=== PATIENT | male | born 1935 | race Caucasian/White ===

== ENCOUNTER → 2018-02-04 | Outpatient (CLI) | payer MEDICARE, OTHER ==
[~2018-02-04] MED LIST: CEPH500 PO; HYDACE5325 PO; HYDR1TAB94 PO; LEVOXYL; LEVSOD150 PO; METO5A; OMEP20ER PO; Synthroid/Lev0.15 MG PO; THYR60 PO; Zithromax250 MG PO; [UNRECOGNIZED DRUG - REMARK]
== END | disposition home or self-care (01) ==
LOC: LAB SHORT 11:54 → PLD 11:54
DX: D48.5 Neoplasm of uncertain behavior of skin (principal)
CPT/HCPCS: 88305

== ENCOUNTER 2018-05-14 03:34 | Emergency (ER) | payer MEDICARE, OTHER ==
[~2018-05-14] VITALS: Ht 182.9 cm; Wt 64.0 kg
[~2018-05-14 03:34] MED LIST changes: +ASPI81CH; +Prilosec Otc20 MG; +Procrit2000 UNIT/; +SUCR1; +VICODIN ES 7.51 EACH
[2018-05-14 04:00] LABS: BASOPHILS ABSOLUTE AUTO 0.03 K/mm3 (0.00-0.23); BASOPHILS PERCENT AUTO 0 % (0-2); EOSINOPHILS ABSOLUTE AUTO 0.03 K/mm3 (0.00-0.68); EOSINOPHILS PERCENT AUTO 0 % (0-6); Hemoglobin 9.8 g/dL (13.5-17.5); IMMATURE GRAN ABSOLUTE AUTO 0.09 K/mm3 (0.00-0.10); IMMATURE GRAN PERCENT AUTO 1 % (0-1); LYMPHOCYTES ABSOLUTE AUTO 0.46 K/mm3 (0.84-5.20); LYMPHOCYTES PERCENT AUTO 3 % (21-46); MONOCYTES ABSOLUTE AUTO 0.83 K/mm3 (0.16-1.47); MONOCYTES PERCENT AUTO 6 % (4-13); Mean Corpuscular HGB 31.2 pg (26.0-34.0); Mean Corpuscular HGB Conc 31.6 g/dL (31.5-36.5); Mean Corpuscular Volume 99 fL (80-100); Mean Platelet Volume 9.5 fL (9.1-12.4); NEUTROPHILS ABSOLUTE AUTO 13.73 K/mm3 (1.96-9.15); NEUTROPHILS PERCENT AUTO 91 % (41-73); Platelet Count 247 K/mm3 (150-400); RDW Coefficient Variation 17.5 % (11.7-14.2); RDW Standard Deviation 63.3 fL (35.1-46.3); Red Blood Cell Count 3.14 M/mm3 (4.30-5.90); White Blood Cell Count 15.17 K/mm3 (4.00-11.30)
[2018-05-14 04:13] LABS: International Normalized Ratio 1.01; Prothrombin Time Results 10.4 Sec (9.7-11.5)
[2018-05-14 04:19] LABS: Albumin, Blood 2.9 g/dL (3.4-5.0); Albumin/Globulin Ratio 0.6 (0.8-1.8); Bilirubin, Total 0.4 mg/dL (0.1-1.0); Bun/Creatinine Ratio 23.4 (12.0-20.0); Calcium, Blood 7.8 mg/dL (8.5-10.1); Creatinine, Blood 1.58 mg/dL (0.60-1.20); Globulin, Blood 4.5 g/dL (2.2-4.0); Potassium, Blood 4.4 mmol/L (3.5-5.5); Total Protein, Blood 7.4 g/dL (6.4-8.2)
[2018-05-14 05:21] LABS: Influenza A Negative (NEGATIVE); Influenza B Negative (NEGATIVE)
[2018-05-14] MEDS ORDERED: Doxycycline Hy100 MG PO (05:53)
[2018-05-14] MEDS ORDERED: ALBU90OI INH (05:53)
== END 2018-05-14 06:47 | disposition home or self-care (01) ==
LOC: ER 03:34
PROVIDERS: Emergency Medicine
DX: J18.9 Pneumonia, unspecified organism (principal); D72.829 Elevated white blood cell count, unspecified; Z88.0 Allergy status to penicillin; Z88.2 Allergy status to sulfonamides; Z88.1 Allergy status to other antibiotic agents; Z88.5 Allergy status to narcotic agent; Z79.899 Other long term (current) drug therapy; Z79.82 Long term (current) use of aspirin; Z87.891 Personal history of nicotine dependence
CPT/HCPCS: 36415; 71046; 80053; 83605; 85025; 85610; 85730; 87040; 87804; 93005; 93010; 94640; 96365; 96367; 99284-25; J0456; J0696; J7050

== ENCOUNTER → 2019-10-05 | Outpatient (CLI) | payer MEDICARE, OTHER ==
[~2019-10-05] MED LIST changes: +ALBU90OI INH; +Doxycycline Hy100 MG PO
== END | disposition home or self-care (01) ==
LOC: PLD 11:35 → LAB SHORT 11:35
DX: D48.5 Neoplasm of uncertain behavior of skin (principal)
CPT/HCPCS: 88305

== ENCOUNTER → 2020-04-19 | Outpatient (CLI) | payer MEDICARE, OTHER | END | disposition home or self-care (01) | LOC: LAB SHORT 08:51 → PLD 08:51 | DX: D48.5 Neoplasm of uncertain behavior of skin (principal) | CPT/HCPCS: 88305 ==

== ENCOUNTER → 2020-08-03 | Outpatient (CLI) | payer MEDICARE, OTHER ==
[~2020-08-03] MED LIST changes: +Aspirin EC81 MG PO; +COMBIVENT RESPIM4 G1; +LEVO-T150 MC1 PO; +MIRALAX17 GM PO; +PROBIOTIC1 EA13 PO; +SIME80CH PO
== END ==
LOC: PLD 12:03 → LAB SHORT 12:03
DX: D48.5 Neoplasm of uncertain behavior of skin (principal); C44.519 Basal cell carcinoma of skin of other part of trunk; Z88.0 Allergy status to penicillin; Z88.1 Allergy status to other antibiotic agents; Z88.5 Allergy status to narcotic agent; Z88.8 Allergy status to other drugs, medicaments and biological substances; Z91.011 Allergy to milk products
CPT/HCPCS: 88305

== ENCOUNTER → 2020-08-21 | Outpatient (CLI) | payer MEDICARE, OTHER | LOC: PLD 09:52 → LAB SHORT 09:52 | DX: C44.529 Squamous cell carcinoma of skin of other part of trunk (principal); Z88.0 Allergy status to penicillin; Z88.1 Allergy status to other antibiotic agents; Z88.2 Allergy status to sulfonamides; Z88.5 Allergy status to narcotic agent; Z88.8 Allergy status to other drugs, medicaments and biological substances; Z91.011 Allergy to milk products | CPT/HCPCS: 88305 ==

== ENCOUNTER → 2020-12-28 | Outpatient (CLI) | payer MEDICARE, OTHER | LOC: LAB SHORT 13:44 → LAB 13:44 | DX: D48.5 Neoplasm of uncertain behavior of skin (principal); L57.0 Actinic keratosis; L90.5 Scar conditions and fibrosis of skin; Z88.0 Allergy status to penicillin; Z88.2 Allergy status to sulfonamides; Z88.5 Allergy status to narcotic agent; Z88.1 Allergy status to other antibiotic agents; Z88.8 Allergy status to other drugs, medicaments and biological substances; Z91.011 Allergy to milk products | CPT/HCPCS: 88305 ==

== ENCOUNTER → 2021-04-24 | Outpatient (CLI) | payer MEDICARE, OTHER | LOC: LAB 15:11 → LAB SHORT 15:11 | DX: C44.41 Basal cell carcinoma of skin of scalp and neck (principal); D48.5 Neoplasm of uncertain behavior of skin | CPT/HCPCS: 88305 ==

== ENCOUNTER → 2021-06-22 | Outpatient (CLI) | payer MEDICARE, OTHER ==
[2021-06-22 09:40] LABS: Bun/Creatinine Ratio 20.2 (12.0-20.0); Calcium, Blood 7.8 mg/dL (8.5-10.1); Creatinine, Blood 1.24 mg/dL (0.60-1.20); Potassium, Blood 4.7 mmol/L (3.5-5.5)
[2021-06-22 09:54] LABS: Hematocrit 31.6 % (37.0-53.0); Mean Corpuscular HGB 30.3 pg (26.0-34.0); Mean Corpuscular HGB Conc 31.6 g/dL (31.5-36.5); Mean Corpuscular Volume 96 fL (80-100); Mean Platelet Volume 11.2 fL (9.1-12.4); Platelet Count 161 K/mm3 (150-400); RDW Standard Deviation 63.7 fL (35.1-46.3); White Blood Cell Count 7.68 K/mm3 (4.00-11.30)
[2021-06-22 10:16] LABS: BAND PERCENT MAN 12 % (0-8); BASOPHILS PERCENT MAN 0 % (0-2); EOSINOPHILS PERCENT MAN 0 % (0-6); LYMPHOCYTES PERCENT MAN 2 % (21-46); MONOCYTES PERCENT MAN 5 % (4-13); SEG NEUTROPHILS PERCENT MAN 81 % (41-73); TOTAL CELLS COUNTED 100
== END ==
LOC: LAB SHORT 09:27
PROVIDERS: Physician Assistant Surgical
DX: R06.00 Dyspnea, unspecified (principal)
CPT/HCPCS: 80048; 85025

== ENCOUNTER 2021-08-06 11:02 | Day surgery (SDC) | payer MEDICARE, OTHER ==
[~2021-08-06] VITALS: Ht 182.9 cm; Wt 55.6 kg
== END 2021-08-06 13:52 | disposition home or self-care (01) ==
LOC: ORSCSDS 11:02
PROVIDERS: Internal Medicine Gastroenterology
PROC: 0DB78ZX Excision of Stomach, Pylorus, Via Natural or Artificial Opening Endoscopic, Diagnostic (ICD-10-PCS; principal; 2021-08-06 12:15)
PROC: 0D758ZZ Dilation of Esophagus, Via Natural or Artificial Opening Endoscopic (ICD-10-PCS; principal; 2021-08-06 12:15)
PROC: 0DB98ZX Excision of Duodenum, Via Natural or Artificial Opening Endoscopic, Diagnostic (ICD-10-PCS; principal; 2021-08-06 12:15)
DX: R13.10 Dysphagia, unspecified (principal); K21.9 Gastro-esophageal reflux disease without esophagitis; N28.9 Disorder of kidney and ureter, unspecified; J44.9 Chronic obstructive pulmonary disease, unspecified; Z87.891 Personal history of nicotine dependence; Z85.79 Personal history of other malignant neoplasms of lymphoid, hematopoietic and related tissues; Z79.899 Other long term (current) drug therapy; Z79.82 Long term (current) use of aspirin; I25.10 Atherosclerotic heart disease of native coronary artery without angina pectoris; G47.33 Obstructive sleep apnea (adult) (pediatric); E03.9 Hypothyroidism, unspecified
CPT/HCPCS: 88305; 88342; J2370; J2704

== ENCOUNTER → 2021-11-28 | Outpatient (CLI) | payer MEDICARE, OTHER ==
[2021-11-28 10:32] LABS: BASOPHILS ABSOLUTE AUTO 0.02 K/mm3 (0.00-0.23); BASOPHILS PERCENT AUTO 0 % (0-2); EOSINOPHILS ABSOLUTE AUTO 0.06 K/mm3 (0.00-0.68); EOSINOPHILS PERCENT AUTO 1 % (0-6); Hematocrit 26.4 % (37.0-53.0); Hemoglobin 7.8 g/dL (13.5-17.5); IMMATURE GRAN ABSOLUTE AUTO 0.07 K/mm3 (0.00-0.10); IMMATURE GRAN PERCENT AUTO 1 % (0-1); LYMPHOCYTES ABSOLUTE AUTO 0.33 K/mm3 (0.84-5.20); LYMPHOCYTES PERCENT AUTO 5 % (21-46); MONOCYTES ABSOLUTE AUTO 0.31 K/mm3 (0.16-1.47); MONOCYTES PERCENT AUTO 5 % (4-13); Mean Corpuscular HGB 29.5 pg (26.0-34.0); Mean Corpuscular HGB Conc 29.5 g/dL (31.5-36.5); Mean Corpuscular Volume 100 fL (80-100); Mean Platelet Volume 10.5 fL (9.1-12.4); NEUTROPHILS ABSOLUTE AUTO 5.76 K/mm3 (1.96-9.15); NEUTROPHILS PERCENT AUTO 88 % (41-73); Platelet Count 261 K/mm3 (150-400); Red Blood Cell Count 2.64 M/mm3 (4.30-5.90); White Blood Cell Count 6.55 K/mm3 (4.00-11.30)
== END | disposition home or self-care (01) ==
LOC: LAB 10:18 → LAB SHORT 10:18
PROVIDERS: Registered Nurse Oncology
DX: C88.0 Waldenstrom macroglobulinemia (principal); D46.0 Refractory anemia without ring sideroblasts, so stated; D72.819 Decreased white blood cell count, unspecified; E55.9 Vitamin D deficiency, unspecified; L29.9 Pruritus, unspecified
CPT/HCPCS: 85025

== ENCOUNTER → 2022-01-24 | Outpatient (CLI) | payer MEDICARE, OTHER ==
[2022-01-24 13:51] LABS: Stool Occult Bld Immuno 1 Negative (NEGATIVE)
== END | disposition home or self-care (01) ==
LOC: LAB SHORT 10:47 → LAB 10:47
PROVIDERS: Registered Nurse Oncology
DX: D50.9 Iron deficiency anemia, unspecified (principal)
CPT/HCPCS: 82274

== ENCOUNTER 2022-07-09 17:08 | Observation (INO) | payer MEDICARE, OTHER ==
[~2022-07-09] VITALS: Ht 180.3 cm; Wt 50.8 kg
[2022-07-09 18:01] LABS: BASOPHILS ABSOLUTE AUTO 0.02 K/mm3 (0.00-0.23); BASOPHILS PERCENT AUTO 0 % (0-2); EOSINOPHILS PERCENT AUTO 0 % (0-6); Hematocrit 34.4 % (37.0-53.0); Hemoglobin 10.7 g/dL (13.5-17.5); IMMATURE GRAN ABSOLUTE AUTO 0.06 K/mm3 (0.00-0.10); IMMATURE GRAN PERCENT AUTO 1 % (0-1); LYMPHOCYTES ABSOLUTE AUTO 0.38 K/mm3 (0.84-5.20); LYMPHOCYTES PERCENT AUTO 5 % (21-46); MONOCYTES ABSOLUTE AUTO 0.29 K/mm3 (0.16-1.47); MONOCYTES PERCENT AUTO 4 % (4-13); Mean Corpuscular HGB 31.1 pg (26.0-34.0); Mean Corpuscular HGB Conc 31.1 g/dL (31.5-36.5); Mean Corpuscular Volume 100 fL (80-100); Mean Platelet Volume 9.6 fL (9.1-12.4); NEUTROPHILS ABSOLUTE AUTO 6.81 K/mm3 (1.96-9.15); NEUTROPHILS PERCENT AUTO 90 % (41-73); Platelet Count 310 K/mm3 (150-400); RDW Coefficient Variation 15.8 % (11.7-14.2); RDW Standard Deviation 57.6 fL (35.1-46.3); Red Blood Cell Count 3.44 M/mm3 (4.30-5.90); White Blood Cell Count 7.56 K/mm3 (4.00-11.30)
[2022-07-09 18:24] LABS: Albumin, Blood 2.9 g/dL (3.4-5.0); Albumin/Globulin Ratio 0.6 (0.8-1.8); Bilirubin, Total 0.4 mg/dL (0.1-1.0); Bun/Creatinine Ratio 36.3 (12.0-20.0); Calcium, Blood 8.7 mg/dL (8.5-10.1); Creatinine, Blood 1.13 mg/dL (0.60-1.20); Globulin, Blood 4.7 g/dL (2.2-4.0); Potassium, Blood 4.8 mmol/L (3.5-5.5); Total Protein, Blood 7.6 g/dL (6.4-8.2)
[2022-07-10 03:42] LABS: BASOPHILS ABSOLUTE AUTO 0.02 K/mm3 (0.00-0.23); BASOPHILS PERCENT AUTO 0 % (0-2); EOSINOPHILS PERCENT AUTO 0 % (0-6); Hematocrit 29.2 % (37.0-53.0); Hemoglobin 9.2 g/dL (13.5-17.5); IMMATURE GRAN ABSOLUTE AUTO 0.06 K/mm3 (0.00-0.10); IMMATURE GRAN PERCENT AUTO 1 % (0-1); LYMPHOCYTES ABSOLUTE AUTO 0.44 K/mm3 (0.84-5.20); LYMPHOCYTES PERCENT AUTO 4 % (21-46); MONOCYTES ABSOLUTE AUTO 0.58 K/mm3 (0.16-1.47); MONOCYTES PERCENT AUTO 5 % (4-13); Mean Corpuscular HGB 31.1 pg (26.0-34.0); Mean Corpuscular HGB Conc 31.5 g/dL (31.5-36.5); Mean Corpuscular Volume 99 fL (80-100); Mean Platelet Volume 9.7 fL (9.1-12.4); NEUTROPHILS ABSOLUTE AUTO 11.51 K/mm3 (1.96-9.15); NEUTROPHILS PERCENT AUTO 91 % (41-73); Platelet Count 271 K/mm3 (150-400); RDW Coefficient Variation 15.5 % (11.7-14.2); RDW Standard Deviation 56.3 fL (35.1-46.3); Red Blood Cell Count 2.96 M/mm3 (4.30-5.90); White Blood Cell Count 12.61 K/mm3 (4.00-11.30)
[2022-07-10 04:02] LABS: Albumin, Blood 2.4 g/dL (3.4-5.0); Albumin/Globulin Ratio 0.6 (0.8-1.8); Bilirubin, Total 0.4 mg/dL (0.1-1.0); Calcium, Blood 8.5 mg/dL (8.5-10.1); Creatinine, Blood 1.11 mg/dL (0.60-1.20); Globulin, Blood 3.8 g/dL (2.2-4.0); Magnesium, Blood 2.5 mg/dL (1.6-2.4); Potassium, Blood 4.9 mmol/L (3.5-5.5); Total Protein, Blood 6.2 g/dL (6.4-8.2)
--- NOTE | 2022-07-10 06:33 | NUR ---
Patient is AAOX4, independent in room with standby assist. Voiding , x1 bowel movement. Denies nausea and pain at this time. Reports "uncomfortable" feeling in abdomen. Abdomen has scaphoid appearance. Patient reports hx of COPD and is noted to be SOB on exertion. Sats remain above 95% on room air. Patient is NPO, Dr. Garcia at bedside and explained POC with patient. No acute safety concerns at this time.
--- NOTE | 2022-07-10 16:44 | NUR ---
APPROX 1645, PT STS PAIN IS 1/10, DENIES ANY ISSUES. SCANT BLOOD ON ADHESIVE DRESSING FROM ORIGINAL PLACEMENT, NO FURTHER BLEEDING OR ABNORMALITIES. DR. MALDONADO CONSULTED & STS PT IS OKAY TO DISCHARGE HOME. Discharge instructions reviewed with patient. Patient verbalizes understanding. Copy given to patient to take home.
--- NOTE | 2022-07-10 17:15 | NUR ---
07/10/22 1715 Raman Johnson HISTORY, CHART, MEDICATIONS AND ALLERGIES REVIEWED BEFORE START OF PROCEDURE. PATIENT CONFIRMS NPO STATUS AND AGREES WITH SCHEDULED PROCEDURE. 3-LEAD EKG REVIEWED WITH PHYSICIAN PRIOR TO START OF PROCEDURE. MONITOR INTACT WITH CONTINUOUS PULSE OXIMETRY,CAPNOGRAPHY, 3-LEAD EKG, INTERMITTENT BP. SUPPLEMENTAL O2 TO BE TITRATED THROUGHOUT PROCEDURE TO MAINTAIN O2 SATURATION ABOVE 90%. PATIENT DETERMINED TO BE ASA APPROPRIATE FOR PROPOFOL SEDATION PRIOR TO START OF PROCEDURE BY
--- NOTE | 2022-07-10 17:28 | NUR ---
PATIENT JUST CAME BACK FROM PACU AT 1728 TODAY FROM HAVING THE EGD WITH [facility] DIALATION. PATIENT IS A&OX4. VS ARE WNL AND IS ON RA WITH >90% OXYGEN SATS. HE WAS ABLE TO TRANSFER A SBA FROM THE [facility] TO THE BED IN THE ROOM. PATIENT IS TOLERATING SMALL AMOUNTS OF PO INTAKE AT THIS TIME. DR. TRIPATHI STATED THE PATIENT CAN HAVE A FULL LIQUID DIET TONIGHT AND WHEN HE GOES HOME HE SHOULD BE ON A [facility] SOFT DIET TO HELP PREVENT THIS FROM HAPPENING AGAIN. PATIENT IS LAYING IN BED WITH CALL LIGHT IN REACH. DR. TRIPATHI IS IN THE ROOM UPDATING THE FAMILY WITH THE SAME INFORMATION.
[2022-07-11 06:05] LABS: BASOPHILS ABSOLUTE AUTO 0.02 K/mm3 (0.00-0.23); BASOPHILS PERCENT AUTO 0 % (0-2); EOSINOPHILS PERCENT AUTO 0 % (0-6); Hematocrit 27.5 % (37.0-53.0); Hemoglobin 8.8 g/dL (13.5-17.5); IMMATURE GRAN ABSOLUTE AUTO 0.15 K/mm3 (0.00-0.10); IMMATURE GRAN PERCENT AUTO 1 % (0-1); LYMPHOCYTES ABSOLUTE AUTO 0.29 K/mm3 (0.84-5.20); LYMPHOCYTES PERCENT AUTO 2 % (21-46); MONOCYTES ABSOLUTE AUTO 0.69 K/mm3 (0.16-1.47); MONOCYTES PERCENT AUTO 4 % (4-13); Mean Corpuscular HGB 31.3 pg (26.0-34.0); Mean Corpuscular Volume 98 fL (80-100); Mean Platelet Volume 9.5 fL (9.1-12.4); NEUTROPHILS ABSOLUTE AUTO 16.72 K/mm3 (1.96-9.15); NEUTROPHILS PERCENT AUTO 94 % (41-73); Platelet Count 252 K/mm3 (150-400); RDW Coefficient Variation 15.4 % (11.7-14.2); RDW Standard Deviation 55.1 fL (35.1-46.3); Red Blood Cell Count 2.81 M/mm3 (4.30-5.90); White Blood Cell Count 17.87 K/mm3 (4.00-11.30)
--- NOTE | 2022-07-11 07:40 | NUR ---
SUMMARY PT INITIALLY TAKING SMALL AMNTS PO FLUIDS,I CALLED AND RECEIVED ORDER FOR IV FLUIDS X1 LITER. PT ALSO C/O BACK PAIN.ORDERS RECEIVED FOR PAIN MEDS. PT DENIED NEED FOR PAIN MEDS THIS SHIFT.TOLERATING CLEAR LIQ TONIGHT.VOIDING AND SLEEPING AT SHIFT CHANGE.
--- NOTE | 2022-07-11 11:07 | NUR ---
DISCHARGING REVIEWED DC INSTRUCTIONS W/PT AND FAMILY; VERBALIZED UNDERSTANDING. DC'D IV, CATHETER INTACT. PT GETTING DRESSED WITH ASSISTANCE FROM SPOUSE.
--- NOTE | 2022-07-11 11:18 | NUR ---
PT LEFT UNIT IN WC ACCOMPANIED BY FAMILY. HAD POSSESSIONS AND DC PAPERWORK IN HAND.
== END 2022-07-11 11:15 | disposition home or self-care (01) ==
LOC: ER 17:08 → SURS 21:47
PROVIDERS: Family Medicine; Student in an Organized Health Care Education/Training Program; ADMIT Student in an Organized Health Care Education/Training Program
PROC: 0D758ZZ Dilation of Esophagus, Via Natural or Artificial Opening Endoscopic (ICD-10-PCS; principal; 2022-07-10 17:00)
PROC: 0DC58ZZ Extirpation of Matter from Esophagus, Via Natural or Artificial Opening Endoscopic (ICD-10-PCS; principal; 2022-07-10 17:00)
DX: K22.2 Esophageal obstruction (principal); T18.128A Food in esophagus causing other injury, initial encounter; R13.10 Dysphagia, unspecified; K44.9 Diaphragmatic hernia without obstruction or gangrene; E43 Unspecified severe protein-calorie malnutrition; I25.10 Atherosclerotic heart disease of native coronary artery without angina pectoris; K22.89 Other specified disease of esophagus; Q39.6 Congenital diverticulum of esophagus; E03.9 Hypothyroidism, unspecified; K21.9 Gastro-esophageal reflux disease without esophagitis; N40.0 Benign prostatic hyperplasia without lower urinary tract symptoms; K22.0 Achalasia of cardia; D72.829 Elevated white blood cell count, unspecified; D64.9 Anemia, unspecified; I10 Essential (primary) hypertension; Z79.890 Hormone replacement therapy; Z79.899 Other long term (current) drug therapy; Z88.0 Allergy status to penicillin; Z88.2 Allergy status to sulfonamides; Z88.8 Allergy status to other drugs, medicaments and biological substances; Z87.891 Personal history of nicotine dependence; X58.XXXA Exposure to other specified factors, initial encounter
CPT/HCPCS: 36415; 80053; 82947; 83735; 85025; 99284; C1726; G0378; J2405; J2704; J7030; J7120

== ENCOUNTER 2022-08-15 20:28 | Observation (INO) | payer MEDICARE, OTHER ==
[~2022-08-15] VITALS: Ht 180.3 cm; Wt 51.7 kg
--- NOTE | 2022-08-16 01:34 | NUR ---
ARRIVAL: PT ARRIVED TO THE UNIT AT APPROXIMATELY 0130 VIA BED AND TRANSFERED WITH SLIDER SHEET. PT LETHARGIC, APPEARS CACHECTIC, IS DIFFICULT TO AROUSE, RESPONDS TO PAINFUL STIMULI. PT ON 5L OF 02 VIA NC AT THIS TIME. VITAL SIGNS WERE TAKEN. PT APPEARS TO HAVE APNEIC EPISODES BETWEEN RESPIRATIONS. RESPIRATIONS WERE AVERAGING 4-6 MINUTE. PT UNABLE TO ANSWER QUESTIONS. GRIMACES IN PAIN ON OCCASSION AND MOVES HANDS TO FACE AND L HIP.
[2022-08-16 01:47] VITALS: BP 117/61
--- NOTE | 2022-08-16 02:25 | NUR ---
PHYSICIAN CONTACT: 1.) AT APPROXIMATELY 0159, DR HOWARD WAS CONTACTED. PT RESPIRATIONS WERE AVERAGING 6 A MINUTE. DISCUSSED PLAN TO GIVE NARCAN TO PT. PROVIDER AGREED. PROVIDER ALSO REQUESTED THAT PT BE NPO AND THAT AN ORTHO CONSULT BE COMPLETED. 2.) NARCAN WAS GIVEN TO PT. ONLY 0.2 MG WAS ADMINISTERED AND PT RESPONDED WELL, RESPIRATIONS WENT UP TO 16 BREATHS PER MINUTE. PROVIDER AWARE OF DOSE GIVEN. DISCUSSED TORADOL ORDERED ON PT EMAR, PROVIDER REQUESTED AM LABS BE DRAWN EARLY BEFORE ADMINISTERING. CHARGE NURSE CALLED LABORATORY TO REQUEST LABS BE DRAWN AT THIS TIME.
[2022-08-16 02:30] LABS: BASOPHILS ABSOLUTE AUTO 0.02 K/mm3 (0.00-0.23); BASOPHILS PERCENT AUTO 0 % (0-2); EOSINOPHILS PERCENT AUTO 0 % (0-6); Hemoglobin 7.4 g/dL (13.5-17.5); IMMATURE GRAN ABSOLUTE AUTO 0.07 K/mm3 (0.00-0.10); IMMATURE GRAN PERCENT AUTO 1 % (0-1); LYMPHOCYTES ABSOLUTE AUTO 0.42 K/mm3 (0.84-5.20); LYMPHOCYTES PERCENT AUTO 4 % (21-46); MONOCYTES ABSOLUTE AUTO 0.61 K/mm3 (0.16-1.47); MONOCYTES PERCENT AUTO 6 % (4-13); Mean Corpuscular HGB Conc 30.8 g/dL (31.5-36.5); Mean Corpuscular Volume 97 fL (80-100); Mean Platelet Volume 9.7 fL (9.1-12.4); NEUTROPHILS ABSOLUTE AUTO 9.65 K/mm3 (1.96-9.15); NEUTROPHILS PERCENT AUTO 90 % (41-73); Platelet Count 231 K/mm3 (150-400); RDW Coefficient Variation 16.9 % (11.7-14.2); RDW Standard Deviation 60.4 fL (35.1-46.3); Red Blood Cell Count 2.47 M/mm3 (4.30-5.90); White Blood Cell Count 10.77 K/mm3 (4.00-11.30)
[2022-08-16 02:48] LABS: Albumin, Blood 2.7 g/dL (3.4-5.0); Albumin/Globulin Ratio 0.6 (0.8-1.8); Bilirubin, Total 0.2 mg/dL (0.1-1.0); Bun/Creatinine Ratio 35.2 (12.0-20.0); Calcium, Blood 8.5 mg/dL (8.5-10.1); Creatinine, Blood 1.25 mg/dL (0.60-1.20); Globulin, Blood 4.2 g/dL (2.2-4.0); Potassium, Blood 5.2 mmol/L (3.5-5.5); Total Protein, Blood 6.9 g/dL (6.4-8.2)
--- NOTE | 2022-08-16 03:01 | NUR ---
PROVIDER CONTACT: DR. HOWARD WAS CALLED TO DISCUSS RECENT LAB WORK DRAWN THIS AM. ASKED PROVIDER IF HE WOULD LIKE TORADOL TO STILL BE GIVEN, REPORTED THAT PT APPEARS TO BE IN A LOT OF PAIN AND IS MOVING LEGS OVER SIDE OF THE BED, PROVIDER STATED "TORADOL CAN BE GIVEN." ORDER FOR RECTAL TYLENOL WAS ALSO RECEIVED.
[2022-08-16 04:31] VITALS: BP 104/57
--- NOTE | 2022-08-16 05:24 | NUR ---
PROVIDER CONTACT: CONTACTED DR. HOWARD REGARDING PT RESPIRATORY RATE. PROVIDER REPORTS THAT HE WILL COME AND LOOK AT THE PATIENT. NO NEW ORDERS AT THIS TIME.
--- NOTE | 2022-08-16 05:54 | NUR ---
DR. HOWARD IN TO SEE PT.
[2022-08-16 07:21] VITALS: BP 108/58
--- NOTE | 2022-08-16 07:29 | NUR ---
SHIFT SUMMARY: PT ADMITTED TO THE FLOOR AFTER HAVING A GLF AND SUFFERING A L HIP FX. PT CAME TO THE FLOOR AND WAS HARD TO AROUSE WITH A LOW RESPIRATORY RATE. AFTER GIVING NARCAN (SEE PREVIOUS NOTES,) PT SEEMED TO IMPROVE SLIGHTLY. PT WAS ABLE TO AWAKE AT TIMES AND ANSWER QUESTIONS. PT HAS REMAINED NPO AT THIS TIME. DR. HOWARD CAME TO SEE THE PT DUE TO HIS LOW RESPIRATORY RATE. PT RESTING IN BED WITH L LEG ELEVATED ON PILLOW FOR COMFORT. REMAINS CACHECTIC LOOKING AND DIFFICULT TO AROUSE. PLANS FOR POTENTIAL ORTHO CONSULT OR TO DC HOME WITH FAMILY. REPORT GIVEN TO DAY TIME NURSE.
--- NOTE | 2022-08-16 11:48 | NUR ---
PT LAYING SUPINE IN BED, EYES CLOSED, BREATHING IS EVEN AND UNLABORED, APPEARS TO BE SLEEPING AND COMFORTABLE. PT WAS JUST MEDICATED WITH FENTANYL FOR PAIN PER FAMILY. MET WITH PT FAMILY, DTR AND МАРИНА. THEY HAVE QUESTIONS AND CONCERNS ABOUT KEEPING PT COMFORTABLE WHEN HE IS ABLE TO GO BACK HOME. THEY UNDERSTAND THAT HE IS NOT A SURGICAL CANDIDATE AND THEY HAVE EXPLAINED THIS TO THE PT. THE PT VERBALIZES TO THEM THAT HE JUST WANTS TO BE HOME WHEN HE PASSES. ADVISED WE WILL COORDINATE WITH [facility] WITH DC AND READMISSION TO HOSPICE. FAMILY REPORTS ADDITIONAL EQUIPEMENT HAS ALREADY BEEN DELIVERED INCLUDING A HOSPITAL BED. FAMILY HAS CONCERNS ABOUT PT PAIN CONTROL AND HOW TO KEEP HIM CONF WHEN HE GETS HOME. PROVIDED EDUCATION ON PAIN MANAGEMENT AND HOSPICE MEDICATIONS THEY HAVE AVAILABLE AT HOME WITH SUPPORT FROM HOSPICE. QUESTIONS ABOUT A HIGUERA CATHETER, ADVISED THERE WILL BE AN PORDER PLACED FOR A CATHETER FOR PT COMFORT WHEN THEY ARE READY FOR THIS. ALL QUESTIONS ARE ANSWERED, FAMILY HAS ELECTED TO COMFORT CARE WHILE IN THE HOSPITAL AND TRANSITION BACK TO HOSPICE WITH [facility] WHEN PT IS READY FOR DC. PROVIEDED FAMILY PALLIATIVE CARE CONTACT INFORMATION IF THEY HAVE ANY MORE QUESTIONS OR NEED ANYTHING. UPDATED MAKSIM ORDAZ THAT PT IS GOING CC AND WILL UPDATED CM ON THIS AND CONVERSATION WITH FAMILY FOR DC PLAN. PALLIATIVE CARE WILL CONTINUE TO FOLLOW.
--- NOTE | 2022-08-16 11:58 | NUR ---
CALL PLACED TO DR GOOD, UPDATED HIM THAT DURING MY VISIT FAMILY HAS DECIDED THAT THEU WANT PT TO BE ON COMFORT CARE. DR GOOD IS AGREEABLE TO THIS PLAN. V.O. DR GOOD/WONG ORDAZ TO ENTER CC ORDERS ON THIS PT.
--- NOTE | 2022-08-16 12:00 | NUR ---
PALLIATIVE CARE RN BAYLEE TO BEDSIDE FAMILY & PALLIATIVE CARE DISCUSSED PATIENTS CURRENT SITUATIN, AGREEMENT TO PUT PATIENT ON COMFORT CARE MEASURES WHILE INI THE HOSPITAL. PLAN TO MANAGE PAIN AND DC HOME TO CONTINUE HOSPICE AT HOME WHEN PATIENT READY FOR DC. THIS RN UPDATED ORDERS TO REFLECT COMFORT CARE. SALINE LOCKED PATIENTS IV, HOWEVER, LEFT IN PLACE AT THIS TIME D/T NO DISCOMFORT FROMIT TO PATIENT. PUREE DIET ORDERED, PER FAMILIES REQUEST. CONT PULSE OX REMOVED FOR PATIENTS COMFORT. 3L O2 REMAIN IN PLACE VIA NC. CALL LIGHT IN REACH.
--- NOTE | 2022-08-16 16:00 | NUR ---
DISCUSSED CATHETER INSTERTION WITH FAMILY. FAMILY REPORTED THAT THE NEEDS WAS NOT THERE AT THIS TIME, PATIENT IS ABLE TO USE URINAL INDEPENDENTLY W/O DIFFICULTY. FAMILY REPORTED THAT PATIENT DID STATE WHILE HE WAS AWAKE THAT HE DOES NOT FEEL THAT HE NEEDS A CATHETER AT THIS TIME. ORDERS IN PLACE FOR CATHETER WHEN FAMILY FEELS NEEDED.
--- NOTE | 2022-08-16 16:04 | NUR ---
"Spiritual Care | Comfort Care visit. Pt. is on comfort care. Pts. Spouse and daughter are present and welcome my visit. Pt. had been at home on hospice when he fell and broke his hip. Facilitated a life review with the family memebers. Spouse and daughter are pleasant and rapport is established. Family displays evidence of understanding and a hope that the Pts. suffering will soon be over. Prayed for Pt. and family. Spouse and daughter verbalize gratitude for the spiritual care visit."
--- NOTE | 2022-08-16 17:03 | NUR ---
CC ROUNDING, FAMILY AT THE BEDSIDE. PT IS SITTING UPRIGHT IN BED WITH HOB ELEVATED. BREATHING IS IRREGULAR AND SHALLOW AT TIMES. PT SKIN IN PWD, NO MOTTLING NOTES. PT RECEIVED PAIN MEDICATION APPROX 2 HOURS AGO, FACE IS RELAXED AND HE APPEARS TO BE COMFORTABLE. ADVISED FAMILY TO MAKE SURE THEY ARE TAKING BREAKS FROM THE ROOM TO ALLOW THEM TO REST AND EAT. BOTH DTR AND SPOUSE REPORT THEY HAVE BEEN AND PL[facility] GET [facility] REST AND RETURN IN THE MORNING. ADVISED WE ARE COORDINATING WITH [facility] TO MEET THEM AT HOME SO THE RN CAN ASSIST WITH MOVING, POSITIONING AND MEDICATING PT AFTER TRANSPORT AND THEY ARE VERY APPRECIATIVE FOR THIS. FAMILY REPORTS PT WAS AWAKE AT LUNCH TIME AND ATE HIS ENTOIRE LUNCH TRAY, THEY DISCUSSED A CATHETER AND PT DECLINES AT THIS TIME. PT WILL TRY A BEDPAN FOR BMS, UPDATED MAKSIM RN AND SHE IS AWARE. PT STARTS TO GRIMACE AND MOVE AROUND IN BED, UPDATED MAKSIM UPON MY DEPARTURE FROM THE ROOM. SHE WILL CHECK ON THE PT. NO OTHER NEEDS AT THIS TIME, WILL ROUND ON PT AGAIN IN THE MORNING. PALLIATIVE CARE WILL CONT TO FOLLOW AND PROVIDE SUPPORT.
--- NOTE | 2022-08-16 18:08 | NUR ---
SHIFT SUMMARY PATIENT & FAMILY AGREED ON COMFORT CARE MEASURES FOR PATIENT, SEE PREVIOUS NOTES AND PALLIATIVE CARE NOTES. NO ACUTE CHANGES THIS SHIFT. PAIN MEDICATION PRN PER EMAR. PATIENT RESTED IN BED T/O SHIFT, ATE LUNCH, APPEARS COMFORTABLE. CALL LIGHT IN REACH. WILL REPORT TO ONCOMING RN AT 1900.
--- NOTE | 2022-08-17 05:14 | NUR ---
SHIFT SUMMARY PT A&O2-3, COOPERATIVE WITH CARE. NO ACUTE CHANGES. PT HAS DENIED NEED FOR PAIN MEDICATION THIS SHIFT. ATTENDS IN PLACE IN CASE OF INCONTINENCE, BUT ABLE TO USE URINAL. PT SLEPT T/O MOST OF SHIFT, BUT EASILY AROUSABLE. CALL LIGHT WITHIN REACH.
--- NOTE | 2022-08-17 08:04 | NUR ---
AWAKE, A&OX3, DENIES ANY PAIN, APPEARS TO BE COMFORTABLE, REPOSITIONED IN BED, O2 ON 2L VIA NC, RESPIRATIONS REGULAR, CONT. COMFORT CARE MEASURES.
--- NOTE | 2022-08-17 14:30 | NUR ---
DR ARITA IN ROOM WITH PT AND FAMILY UPON MY ARRIVAL. DISCUSSION ABOUT DC PLAN AND STOOL SOFTENERS. PT IS SITTING UP IN BED ALERT AND INTERACTING WITH CONVERSATION. FAMILY WITH QUESTIONS ABOUT MEDCAITONS AND SUPPLIES. ALL QUESTIONS ANSWERED AND PROVIDED EDUCATION TO PT AND FAMILY ON PAIN, CONSTIPATION AND SYMPTOM MANAGEMENT. PT ASKS FOR A TRAPEZE ON HOSPITAL BED, ADVISED WE WILL ASK [facility] IF THIS IS AVAIABLE. CASE CONF DR ARITA, PLAN TO MAKE SURE PT PAIN IS MANAGED WITH ROXANOL BEFORE DC HOME WITH [facility]. POTANTIAL DC TOMORROW, WILL COORDICATE WITH CM. [facility] IS EXPECTING THIS PT TO COME BACK ON SERVICE, DME INCLUDING BED HAS ALREADY BEEN DELIVERED. CASE CONF WITH MAHNAZ MCNALLY, UPDATED HER ON DC PLAN, SHE VU AND WILL CONTACT [facility] TO COORDINATE RIDE AND SAME DAY ADMISSION.
--- NOTE | 2022-08-17 17:53 | NUR ---
SUMMARY DENIED ANY PAIN TODAY, REPOSITIONED FOR COMFORT T/O THE DAY, FAMILY IN TO VISIT MOST OF THE DAY, C/O NAUSEA THIS AFTERNOON, ZOFRAN GIVEN, NO C/O SOB, O2 ON 2L VIA NC, COMFORT MEASURES T/O THE DAY, NO ACUTE CHANGES THIS SHIFT.
[2022-08-18 07:11] VITALS: BP 103/55
--- NOTE | 2022-08-18 08:05 | NUR ---
SUMMARY PT REPORTED GOOD PAIN CONTROL TONIGHT.POSSIBLE DISCHARGE HOME TODAY.
--- NOTE | 2022-08-18 13:18 | NUR ---
DC'D HOME VIA GURNEY TRANSPORT, HOME HOSPICE TO FOLLOW, BELONGINGS TAKEN HOME YESTERDAY BY AND DAUGHTER AND 1 BAG TODAY BY A FAMILY COUSIN.
== END 2022-08-18 13:14 | disposition hospice, home (50) ==
LOC: ER 20:28 → SURS 20:29 → ERHOLD 20:29 → SURS 08-16 01:46
PROVIDERS: ADMIT Student in an Organized Health Care Education/Training Program
DX: S72.042A Displaced fracture of base of neck of left femur, initial encounter for closed fracture (principal); W18.30XA Fall on same level, unspecified, initial encounter; E43 Unspecified severe protein-calorie malnutrition; K44.9 Diaphragmatic hernia without obstruction or gangrene; D64.9 Anemia, unspecified; Z88.8 Allergy status to other drugs, medicaments and biological substances; Z87.891 Personal history of nicotine dependence; Z88.2 Allergy status to sulfonamides; Z88.0 Allergy status to penicillin; E03.9 Hypothyroidism, unspecified; Z66 Do not resuscitate; Z68.1 Body mass index [BMI] 19.9 or less, adult; K21.9 Gastro-esophageal reflux disease without esophagitis
CPT/HCPCS: 36415; 73502; 80053; 83735; 85025; 94762; 96374; 96375; 96376; 99285-25; A9270; G0378; J1170; J1885; J2310; J2405; J3010; J7030